=== PATIENT | male | born 1960 | race African-American/Black ===

== ENCOUNTER 2017-07-20 11:52 | Emergency (ER) | payer SELFPAY ==
[~2017-07-20] VITALS: Ht 182.9 cm; Wt 120.0 kg
[2017-07-20 11:53] VITALS: BP 147/66
[2017-07-20] MEDS ORDERED: CYANOCOBALAMIN 1000MCG/ML VIAL IM ONE (13:30)
[2017-07-20] MEDS ORDERED: SODIUM CHLORIDE 0.9% 1,000 ML IV ONE (13:30)
== END 2017-07-20 14:05 | disposition left against medical advice (07) ==
LOC: ER 12:22
DX: F10.229 Alcohol dependence with intoxication, unspecified (principal); Y90.9 Presence of alcohol in blood, level not specified; E86.0 Dehydration; K08.9 Disorder of teeth and supporting structures, unspecified; F20.9 Schizophrenia, unspecified
CPT/HCPCS: 99283; J3420; J7030